=== PATIENT | male | born 1930 | race Caucasian/White ===

== ENCOUNTER → 2016-12-01 | Outpatient (CLI) | payer MEDICARE, OTHER ==
[~2016-12-01] VITALS: Ht 139.7 cm; Wt 56.0 kg
[~2016-12-01] MED LIST: ACET-66 PO; ALEN70TA48 PO; AMLO-511 PO; ASPI-891 PO; BRINOS OP; COMBISP IH; DICL4100G TP; DORZ10DR13 OU; FINA5TAB41 PO; FURO20 PO; MECL-111 PO; METO-325 PO; POTA20TA11 PO; ROSU20 PO; TAMS0.4C32 PO; TRAM50TA50 PO; TRAVZOS OU
[2016-12-01 15:38] VITALS: BP 127/66
== END | disposition home or self-care (01) ==
LOC: SRCNTR 15:00
PROVIDERS: ATTEND Internal Medicine Cardiovascular Disease
DX: I10 Essential (primary) hypertension (principal); E78.5 Hyperlipidemia, unspecified; I25.10 Atherosclerotic heart disease of native coronary artery without angina pectoris; R42 Dizziness and giddiness; R00.1 Bradycardia, unspecified; Z86.79 Personal history of other diseases of the circulatory system
CPT/HCPCS: G0463

== ENCOUNTER → 2017-02-01 | Outpatient (CLI) | payer MEDICARE, OTHER ==
[~2017-02-01] VITALS: Ht 139.7 cm; Wt 56.7 kg
[2017-02-01 10:00] VITALS: BP 139/69
== END | disposition home or self-care (01) ==
LOC: SRCNTR 09:52
PROVIDERS: ATTEND Internal Medicine Cardiovascular Disease
DX: I10 Essential (primary) hypertension (principal); I25.10 Atherosclerotic heart disease of native coronary artery without angina pectoris; E78.5 Hyperlipidemia, unspecified; I49.9 Cardiac arrhythmia, unspecified; I25.2 Old myocardial infarction
CPT/HCPCS: G0463

== ENCOUNTER → 2017-03-24 | Outpatient (CLI) | payer MEDICARE, OTHER ==
[2017-03-24 11:42] LABS: BASOPHILS % (AUTO) 0.1 % (0.0-2.0); EOSINOPHILS # (AUTO) 0.12 K/uL (0.00-0.70); EOSINOPHILS % (AUTO) 2.76 % (1.0-6.0); HEMATOCRIT 38.4 % (41-53); HEMOGLOBIN 13.3 g/dL (13.5-17.5); LYMPHOCYTES # (AUTO) 1.1 K/uL (1.0-4.8); LYMPHOCYTES % (AUTO) 25.5 % (22.0-44.0); MEAN CORPUSCULAR HEMOGLOBIN 32.5 pg (26.0-34.0); MEAN CORPUSCULAR HGB CONC 34.7 G/dL (31.0-37.0); MEAN CORPUSCULAR VOLUME 94 fL (80-100); MONOCYTES # (AUTO) 0.4 K/uL (0.1-1.0); NEUTROPHILS # (AUTO) 2.7 K/uL (1.8-7.7); NEUTROPHILS % (AUTO) 62.7 % (40.0-70.0); PLATELET COUNT (AUTO) 182 K/uL (150-450); RED BLOOD CELL COUNT(AUTO) 4.11 MIL/uL (4.50-5.90); RED CELL DISTRIBUTION WIDTH 13.2 % (11.5-14.5); WHITE BLOOD COUNT (AUTO) 4.4 K/uL (4.5-11.0)
[2017-03-24 12:01] LABS: ANION GAP 8 mmol/L (8-16); CARBON DIOXIDE 26 mmol/L (22-29); CHLORIDE 104 mmol/L (98-107); POTASSIUM 4.8 mmol/L (3.5-5.1); SODIUM SERUM 138 mmol/L (136-145); UREA NITROGEN, BLOOD 11 mg/dL (7-18)
[2017-03-24 12:02] LABS: ALANINE AMINOTRANSFERASE 22 U/L (12-78); ALBUMIN 3.8 g/dL (3.4-5.0); ASPARTATE AMINOTRANSFERASE 22 U/L (15-37); BILIRUBIN,TOTAL 0.6 mg/dL (0.1-1.0); CALCIUM, TOTAL 8.5 mg/dL (8.8-10.5); CHOL/HDL RATIO 4.9 (4.2-7.3); GLOMERULAR FILTR. RATE CALC > 60 mL/min (>60); TOTAL PROTEIN, SERUM 7.1 g/dL (6.4-8.2)
[2017-03-24 12:26] LABS: HEMOGLOBIN A1C 5.5 % (4.5-6.2)
== END | disposition home or self-care (01) ==
LOC: LABPV 09:25
PROVIDERS: ATTEND Internal Medicine Cardiovascular Disease
DX: I25.10 Atherosclerotic heart disease of native coronary artery without angina pectoris (principal); I10 Essential (primary) hypertension; E78.5 Hyperlipidemia, unspecified; R73.09 Other abnormal glucose
CPT/HCPCS: 83036

== ENCOUNTER → 2017-04-02 | Outpatient (CLI) | payer MEDICARE, OTHER ==
[~2017-04-02] VITALS: Ht 142.2 cm; Wt 57.4 kg
[~2017-04-02] MED LIST changes: +ACET-784 PO; +MULT-1259 PO
[2017-04-02 10:17] VITALS: BP 127/56
== END | disposition home or self-care (01) ==
LOC: SRCNTR 09:58
PROVIDERS: ATTEND Internal Medicine Cardiovascular Disease
DX: I10 Essential (primary) hypertension (principal); I25.10 Atherosclerotic heart disease of native coronary artery without angina pectoris; I25.2 Old myocardial infarction; E78.5 Hyperlipidemia, unspecified; I49.9 Cardiac arrhythmia, unspecified; R44.1 Visual hallucinations
CPT/HCPCS: G0463

== ENCOUNTER → 2017-06-04 | Outpatient (CLI) | payer MEDICARE, OTHER ==
[~2017-06-04] VITALS: Ht 142.2 cm; Wt 55.5 kg
[~2017-06-04] MED LIST changes: -ACET-66 PO; +INFLUENZA VIRUS VACCINE QVS 2017-18 (3YR+)/PF 60 MCG/0.5 ML SYRINGE IM ONE; -METO-325 PO; +METO50TA12 PO; +TRAM50TA2 PO; -TRAM50TA50 PO
[2017-06-04 10:32] VITALS: BP 134/74
== END | disposition home or self-care (01) ==
LOC: SRCNTR 10:08
PROVIDERS: ATTEND Internal Medicine Cardiovascular Disease
DX: I10 Essential (primary) hypertension (principal); I25.10 Atherosclerotic heart disease of native coronary artery without angina pectoris; E78.5 Hyperlipidemia, unspecified; I49.9 Cardiac arrhythmia, unspecified; Z79.82 Long term (current) use of aspirin
CPT/HCPCS: 90471 ×2; 96372; G0463

== ENCOUNTER → 2017-07-05 | Outpatient (CLI) | payer MEDICARE, OTHER ==
[~2017-07-05] VITALS: Ht 142.2 cm; Wt 54.0 kg
[~2017-07-05] MED LIST changes: -INFLUENZA VIRUS VACCINE QVS 2017-18 (3YR+)/PF 60 MCG/0.5 ML SYRINGE IM ONE; +METO-558 PO; -METO50TA12 PO
[2017-07-05 10:33] VITALS: BP 101/57
== END | disposition home or self-care (01) ==
LOC: SRCNTR 10:18
PROVIDERS: ATTEND Internal Medicine Cardiovascular Disease
DX: I10 Essential (primary) hypertension (principal); I25.10 Atherosclerotic heart disease of native coronary artery without angina pectoris; E78.5 Hyperlipidemia, unspecified; M19.90 Unspecified osteoarthritis, unspecified site; I49.9 Cardiac arrhythmia, unspecified; Z79.82 Long term (current) use of aspirin
CPT/HCPCS: G0463

== ENCOUNTER → 2017-08-05 | Outpatient (CLI) | payer MEDICARE, OTHER ==
[~2017-08-05] VITALS: Ht 142.2 cm; Wt 53.0 kg
[2017-08-05 14:15] VITALS: BP 115/51
== END | disposition home or self-care (01) ==
LOC: SRCNTR 14:12
PROVIDERS: ATTEND Internal Medicine Cardiovascular Disease
DX: I10 Essential (primary) hypertension (principal); I25.10 Atherosclerotic heart disease of native coronary artery without angina pectoris; E78.5 Hyperlipidemia, unspecified; I49.9 Cardiac arrhythmia, unspecified; Z79.899 Other long term (current) drug therapy
CPT/HCPCS: G0463

== ENCOUNTER → 2017-10-04 | Outpatient (CLI) | payer MEDICARE, OTHER ==
[~2017-10-04] VITALS: Ht 142.2 cm; Wt 51.5 kg
[~2017-10-04] MED LIST changes: -FINA5TAB41 PO
[2017-10-04 10:44] VITALS: BP 117/59
== END | disposition home or self-care (01) ==
LOC: SRCNTR 10:37
PROVIDERS: ATTEND Internal Medicine Cardiovascular Disease
DX: I25.10 Atherosclerotic heart disease of native coronary artery without angina pectoris (principal); I10 Essential (primary) hypertension; E78.5 Hyperlipidemia, unspecified; I49.9 Cardiac arrhythmia, unspecified; Z79.82 Long term (current) use of aspirin
CPT/HCPCS: G0463

== ENCOUNTER → 2017-12-30 | Outpatient (CLI) | payer MEDICARE, OTHER ==
[~2017-12-30] VITALS: Ht 139.7 cm; Wt 53.0 kg
[~2017-12-30] MED LIST changes: -ACET-784 PO; -AMLO-511 PO
[2017-12-30 14:37] VITALS: BP 133/86
== END | disposition home or self-care (01) ==
LOC: SRCNTR 14:37
PROVIDERS: ATTEND Internal Medicine Cardiovascular Disease
DX: I25.10 Atherosclerotic heart disease of native coronary artery without angina pectoris (principal); I10 Essential (primary) hypertension; E78.5 Hyperlipidemia, unspecified; E11.9 Type 2 diabetes mellitus without complications; I49.9 Cardiac arrhythmia, unspecified; Z79.82 Long term (current) use of aspirin
CPT/HCPCS: G0463

== ENCOUNTER → 2018-03-02 | Outpatient (CLI) | payer MEDICARE, OTHER ==
[~2018-03-02] VITALS: Ht 142.2 cm; Wt 55.5 kg
[2018-03-02 10:58] VITALS: BP 118/63
== END | disposition home or self-care (01) ==
LOC: SRCNTR 10:29
PROVIDERS: ATTEND Internal Medicine Cardiovascular Disease
DX: I25.10 Atherosclerotic heart disease of native coronary artery without angina pectoris (principal); I10 Essential (primary) hypertension; I49.9 Cardiac arrhythmia, unspecified; E78.5 Hyperlipidemia, unspecified; M19.90 Unspecified osteoarthritis, unspecified site
CPT/HCPCS: G0463

== ENCOUNTER → 2018-05-12 | Outpatient (CLI) | payer MEDICARE, OTHER ==
[~2018-05-12] VITALS: Ht 142.2 cm; Wt 55.0 kg
[2018-05-12 14:10] VITALS: BP 125/56
== END | disposition home or self-care (01) ==
LOC: SRCNTR 13:55
PROVIDERS: ATTEND Internal Medicine Cardiovascular Disease
DX: I25.10 Atherosclerotic heart disease of native coronary artery without angina pectoris (principal); I10 Essential (primary) hypertension; E78.5 Hyperlipidemia, unspecified; I49.9 Cardiac arrhythmia, unspecified
CPT/HCPCS: G0463

== ENCOUNTER → 2018-07-14 | Outpatient (CLI) | payer MEDICARE, OTHER ==
[~2018-07-14] VITALS: Ht 142.2 cm; Wt 54.5 kg
[~2018-07-14] MED LIST changes: -TRAVZOS OU
[2018-07-14 14:33] VITALS: BP 129/70
== END | disposition home or self-care (01) ==
LOC: SRCNTR 14:31
PROVIDERS: ATTEND Internal Medicine Cardiovascular Disease
DX: I25.10 Atherosclerotic heart disease of native coronary artery without angina pectoris (principal); Z23 Encounter for immunization; I10 Essential (primary) hypertension; I49.9 Cardiac arrhythmia, unspecified; E78.5 Hyperlipidemia, unspecified
CPT/HCPCS: 90471; 90686; G0463; 96372

== ENCOUNTER → 2018-11-25 | Outpatient (CLI) | payer MEDICARE ==
[~2018-11-25] VITALS: Ht 139.7 cm; Wt 57.0 kg
[~2018-11-25] MED LIST changes: +ALEN70TA10 PO; -ALEN70TA48 PO; -ROSU20 PO; +ROSU20TA23 PO
[2018-11-25 10:00] VITALS: BP 151/69
== END | disposition home or self-care (01) ==
LOC: SRCNTR 09:59
PROVIDERS: ATTEND Internal Medicine Cardiovascular Disease
DX: E78.5 Hyperlipidemia, unspecified (principal); I49.9 Cardiac arrhythmia, unspecified; I10 Essential (primary) hypertension; I25.10 Atherosclerotic heart disease of native coronary artery without angina pectoris
CPT/HCPCS: G0463

== ENCOUNTER → 2019-10-05 | Outpatient (CLI) | payer MEDICARE, MEDICAID ==
[~2019-10-05] VITALS: Ht 139.7 cm; Wt 59.0 kg
[~2019-10-05] MED LIST changes: +ASPI-1149 PO; -ASPI-891 PO; -MECL-111 PO; +TAMS-13 PO; -TAMS0.4C32 PO
[2019-10-05 14:58] VITALS: BP 142/68
== END | disposition home or self-care (01) ==
LOC: SRCNTR 14:57
PROVIDERS: ATTEND Internal Medicine Cardiovascular Disease
DX: I25.10 Atherosclerotic heart disease of native coronary artery without angina pectoris (principal); I10 Essential (primary) hypertension; E78.5 Hyperlipidemia, unspecified; I49.9 Cardiac arrhythmia, unspecified
CPT/HCPCS: 93005; G0463

== ENCOUNTER → 2020-01-04 | Outpatient (CLI) | payer MEDICARE, MEDICAID | END | disposition home or self-care (01) | LOC: SRCNTR 14:31 | PROVIDERS: ATTEND Internal Medicine Cardiovascular Disease | DX: I25.10 Atherosclerotic heart disease of native coronary artery without angina pectoris (principal); I49.9 Cardiac arrhythmia, unspecified; I10 Essential (primary) hypertension; E78.5 Hyperlipidemia, unspecified; Z79.899 Other long term (current) drug therapy; Z79.82 Long term (current) use of aspirin | CPT/HCPCS: G0463 ==

== ENCOUNTER → 2020-03-11 | Outpatient (CLI) | payer MEDICARE, MEDICAID ==
[~2020-03-11] MED LIST changes: -ALEN70TA10 PO; +ALEN70TA65 PO
== END | disposition home or self-care (01) ==
LOC: SRCNTR 09:40
PROVIDERS: ATTEND Internal Medicine Cardiovascular Disease
DX: I25.10 Atherosclerotic heart disease of native coronary artery without angina pectoris (principal); I10 Essential (primary) hypertension; J44.9 Chronic obstructive pulmonary disease, unspecified; I49.9 Cardiac arrhythmia, unspecified; E78.5 Hyperlipidemia, unspecified
CPT/HCPCS: 99421; 99441

== ENCOUNTER → 2020-04-19 | Outpatient (CLI) | payer MEDICARE, MEDICAID | END | disposition home or self-care (01) | LOC: SRCNTR 11:01 | PROVIDERS: ATTEND Internal Medicine Cardiovascular Disease | DX: I25.10 Atherosclerotic heart disease of native coronary artery without angina pectoris (principal); I10 Essential (primary) hypertension; I49.9 Cardiac arrhythmia, unspecified; E78.5 Hyperlipidemia, unspecified; R63.0 Anorexia; R42 Dizziness and giddiness; Z79.899 Other long term (current) drug therapy | CPT/HCPCS: Q3014 ==

== ENCOUNTER → 2020-06-14 | Outpatient (CLI) | payer MEDICARE, MEDICAID ==
[~2020-06-14] VITALS: Ht 139.7 cm; Wt 57.0 kg
[2020-06-14 11:11] VITALS: BP 135/63
== END | disposition home or self-care (01) ==
LOC: SRCNTR 11:05
PROVIDERS: ATTEND Internal Medicine Cardiovascular Disease
DX: I25.10 Atherosclerotic heart disease of native coronary artery without angina pectoris (principal); I49.9 Cardiac arrhythmia, unspecified; I10 Essential (primary) hypertension; E78.5 Hyperlipidemia, unspecified; R41.81 Age-related cognitive decline
CPT/HCPCS: G0463

== ENCOUNTER → 2020-08-05 | Outpatient (CLI) | payer MEDICARE, OTHER ==
[~2020-08-05] VITALS: Ht 139.7 cm; Wt 67.8 kg
[~2020-08-05] MED LIST changes: -COMBISP IH; -TRAM50TA2 PO
[2020-08-05 11:10] VITALS: BP 130/67
== END | disposition home or self-care (01) ==
LOC: SRCNTR 10:46
PROVIDERS: ATTEND Internal Medicine Cardiovascular Disease
DX: I25.10 Atherosclerotic heart disease of native coronary artery without angina pectoris (principal); I10 Essential (primary) hypertension; E78.5 Hyperlipidemia, unspecified; R41.81 Age-related cognitive decline; I49.9 Cardiac arrhythmia, unspecified
CPT/HCPCS: G0463; Z7500